=== PATIENT | male | born 2005 | race Two or more races ===

== ENCOUNTER 2025-04-13 12:39 | Emergency (ER) | payer MEDICAID, OTHER ==
[~2025-04-13] VITALS: Ht 175.3 cm; Wt 93.0 kg
[2025-04-13 12:51] VITALS: BP 127/97; PULSE 75; RESP 18; TEMP 97.9; O2SAT 97
== END 2025-04-13 14:49 | disposition left against medical advice (07) ==
LOC: ER 12:39
DX: M79.10 Myalgia, unspecified site (principal); Z79.899 Other long term (current) drug therapy